=== PATIENT | female | born 1975 | race Hispanic/Latino ===

== ENCOUNTER 2017-07-26 09:55 | Day surgery (SDC) | payer MEDICARE ==
[2017-07-22 12:14] LABS: EOSINOPHILS % (AUTO) 1.6 % (0.0-8.0); HEMATOCRIT 30.9 % (36-48); LYMPHOCYTES % (AUTO) 5.3 % (21.0-51.0); MEAN CORPUSCULAR HEMOGLOBIN 32.6 pg (27.0-33.0); MEAN CORPUSCULAR HGB CONC 34.2 g/dL (32.0-36.0); MEAN CORPUSCULAR VOLUME 95.4 fL (79-99); MONOCYTES % (AUTO) 16.7 % (3.0-13.0); NEUTROPHILS % (AUTO) 75.4 % (40.0-77.0); NUCLEATED RED BLOOD CELLS 0.1 % (0.0-0.19); PLATELET COUNT (AUTO) 127 K/uL (130-400); RED BLOOD CELL COUNT(AUTO) 3.24 MIL/uL (4.00-5.50); RED CELL DISTRIBUTION WIDTH 16.6 % (11.0-15.5); WHITE BLOOD COUNT (AUTO) 3.7 K/uL (4.8-10.8)
[2017-07-22 12:21] LABS: CREATININE 3.5 mg/dL (0.5-1.5); POTASSIUM 4.5 mmol/L (3.5-5.1)
[2017-07-22 12:38] LABS: INR 1.11 (0.85-1.15); PARTIAL THROMBOPLASTIN TIME 29.2 SEC (26.3-35.5); PROTHROMBIN TIME 11.6 SEC (9.6-11.6)
[2017-07-22 12:41] VITALS: BP 182/87
[~2017-07-26] VITALS: Ht 154.9 cm; Wt 58.4 kg
[~2017-07-26 09:55] MED LIST: BRIM5DRO OU; CALCIUM CARBONATE PO; CINA30 PO; CLON0.3T PO; HYDR100T27 PO; HYDR200T4 PO; LABE300T2 PO; SEVE800T7 PO; XALA2.5OS OU
[2017-07-26] MEDS ORDERED: METHYLPREDNISOLONE SOD SUCC 125MG/2ML VIAL IVP SCH (10:00)
[2017-07-26] MEDS ORDERED: DiphenhydrAMINE HCL 50 MG/ML VIAL IV SCH (10:00)
[2017-07-26 10:11] VITALS: BP 175/86
[2017-07-26] MEDS ORDERED: HYDRALAZINE HCL 20 MG/ML VIAL ONE (11:10)
[2017-07-26] MEDS ORDERED: SODIUM CHLORIDE 0.9% 1000ML 1,000 ML IV ONE (11:35)
[2017-07-26] MEDS ORDERED: HYDRALAZINE HCL 20 MG/ML VIAL IV SCH (14:15)
[2017-07-26 14:24] VITALS: BP 183/91
[2017-07-26 14:37] VITALS: BP 185/92
[2017-07-26 14:52] VITALS: BP 188/99
[2017-07-26 15:22] VITALS: BP 186/90
[2017-07-26 15:37] VITALS: BP 180/97
== END 2017-07-26 15:52 | disposition home or self-care (01) ==
LOC: DAH 09:55
PROVIDERS: ATTEND Internal Medicine Cardiovascular Disease
DX: I87.1 Compression of vein (principal); Z53.9 Procedure and treatment not carried out, unspecified reason; I12.0 Hypertensive chronic kidney disease with stage 5 chronic kidney disease or end stage renal disease; N18.6 End stage renal disease; Z99.2 Dependence on renal dialysis; Z79.84 Long term (current) use of oral hypoglycemic drugs; Z79.899 Other long term (current) drug therapy; Z90.710 Acquired absence of both cervix and uterus; A18.4 Tuberculosis of skin and subcutaneous tissue; Z88.8 Allergy status to other drugs, medicaments and biological substances
CPT/HCPCS: 36415; 71045; 80048; 82948; 85025; 85610; 85730; 93005; A4606; J0360; J7030